=== PATIENT | female | born 1995 | race Caucasian/White ===

== ENCOUNTER 2018-11-11 04:45 | Emergency (ER) | payer BC, MEDICAID ==
[~2018-11-11] VITALS: Ht 160 cm; Wt 56.0 kg
[~2018-11-11 04:45] MED LIST: CLIN60LO TOP; NYST1000 PO
[2018-11-11 05:02] VITALS: BP 121/74
[2018-11-11] MEDS ORDERED: CLIN150C8 PO (05:15)
[2018-11-11] MEDS ORDERED: clindamycin 150mg capsule PO ONE (05:20)
[2018-11-11] MEDS ORDERED: fluconazole 100mg tablet PO ONE (05:25)
== END 2018-11-11 06:18 | disposition home or self-care (01) ==
LOC: ER 04:45
DX: S02.5XXA Fracture of tooth (traumatic), initial encounter for closed fracture (principal); F15.90 Other stimulant use, unspecified, uncomplicated; F11.90 Opioid use, unspecified, uncomplicated; Z86.14 Personal history of Methicillin resistant Staphylococcus aureus infection; Z60.2 Problems related to living alone; Z59.0 Homelessness; Z56.0 Unemployment, unspecified; Z79.899 Other long term (current) drug therapy; X58.XXXA Exposure to other specified factors, initial encounter; Y93.89 Activity, other specified; Y92.89 Other specified places as the place of occurrence of the external cause; Y99.8 Other external cause status
CPT/HCPCS: 99283

== ENCOUNTER 2019-05-13 09:37 | Emergency (ER) | payer BC, MEDICAID ==
[~2019-05-13] VITALS: Ht 160 cm; Wt 66.0 kg
[~2019-05-13 09:37] MED LIST changes: +CLIN150C8 PO
[2019-05-13] MEDS ORDERED: normal saline 1000ML IV soln IVB ONE (10:45)
[2019-05-13] MEDS ORDERED: ondansetron/PF 4mg/2ml inj IV ONE (10:45)
[2019-05-13 11:10] LABS: CLARITY,URINE SLIGHTLY CLOUDY (Clear); COLOR,URINE YELLOW (Yellow); GLUCOSE, URINE NEGATIVE (Neg); KETONES,URINE NEGATIVE (Neg); LEUKOCYTE ESTERASE ,URINE NEGATIVE (Neg); NITRITES, URINE NEGATIVE (Neg); OCCULT BLOOD,URINE TRACE-INTACT (Neg); PROTEIN,URINE NEGATIVE (Neg)
[2019-05-13 11:14] LABS: UA COLLECTION TYPE VOIDED
[2019-05-13 11:22] LABS: URINE AMPHETAMINE SCREEN POSITIVE (Neg); URINE BARBITUATE SCREEN NEGATIVE (Neg); URINE BENZODIAZEPINES SCREEN NEGATIVE (Neg); URINE CANNABINOID SCREEN NEGATIVE (Neg); URINE COCAINE SCREEN NEGATIVE (Neg); URINE METHADONE SCREEN NEGATIVE (Neg); URINE OPIATE SCREEN POSITIVE (Neg); URINE PHENCYCLIDINE SCREEN NEGATIVE (Neg)
[2019-05-13 11:26] LABS: HYALINE CASTS 0-3 /LPF (NEGATIVE); SQUAMOUS EPITHELIAL CELL,UR MODERATE /LPF (FEW)
[2019-05-13 11:26] LABS: BASOPHILS # (AUTO) 0.1 X10'3 (0-0.2); EOSINOPHILS # (AUTO) 0.1 X10'3 (0-0.9); EOSINOPHILS % (AUTO) 2.4 % (0-6); HEMATOCRIT 38.6 % (35.0-45.0); HEMOGLOBIN 13.1 g/dl (12.0-16.0); LYMPHOCYTES # (AUTO) 2.4 X10'3 (1.1-4.8); LYMPHOCYTES % (AUTO) 42.4 % (21-51); MEAN CORPUSCULAR HGB CONC 34.1 g/dL (33.0-36.5); MEAN CORPUSCULAR VOLUME 82.3 FL (78-98); MEAN PLATELET VOLUME 7.2 FL (7.4-10.4); MONOCYTES # (AUTO) 0.4 X10'3 (0-0.9); MONOCYTES % (AUTO) 8.1 % (2-12); NEUTROPHILS # (AUTO) 2.6 X10'3 (1.8-7.7); NEUTROPHILS % (AUTO) 46.1 % (42-75); PLATELET COUNT 341 X10'3 (140-440); RED BLOOD COUNT 4.69 X10'6 (4.20-5.60); RED CELL DISTRIBUTION WIDTH 13.4 % (11.5-14.5); WHITE BLOOD COUNT 5.6 X10'3 (4.5-11.0)
[2019-05-13 11:29] LABS: WBC,URINE 0-4 /HPF (0-4)
[2019-05-13 11:32] LABS: CAL OXALATE CRYSTALS FEW /HPF (NEGATIVE)
[2019-05-13 11:34] LABS: BACTERIA,URINE FEW /HPF (Neg)
[2019-05-13 11:35] LABS: MUCUS STRANDS FEW /LPF (Neg)
[2019-05-13 11:36] LABS: D-DIMER 0.21 MG/L FEU (0-0.50)
[2019-05-13 11:41] LABS: ALBUMIN 3.5 G/DL (3.4-5.0); ANION GAP 7 (8-16); BILIRUBIN,TOTAL 0.3 MG/DL (0.1-1.0); BLOOD UREA NITROGEN 10 MG/DL (7-18); BUN/CREATININE RATIO 14.5 (6.6-38.0); CALCIUM 8.6 MG/DL (8.5-10.1); CHLORIDE 104 MMOL/L (99-107); CREATININE 0.69 MG/DL (0.40-0.90); GLUCOSE 106 MG/DL (70-104); POTASSIUM 4.5 MMOL/L (3.5-5.1); SODIUM 137 MMOL/L (135-145); TOTAL CARBON DIOXIDE 26.5 MMOL/L (24-32); TOTAL PROTEIN 7.8 G/DL (6.4-8.2); eGFR > 90 ML/MIN
[2019-05-13 11:42] LABS: ALANINE AMINOTRANSFERASE 130 U/L (12-78); ALBUMIN/GLOBULIN RATIO 0.8 (1.1-1.5); ALKALINE PHOSPHATASE 77 IU/L (46-116); ASPARTATE AMINO TRANSFERASE 94 U/L (10-37); LIPASE 108 U/L (73-393)
[2019-05-13] MEDS ORDERED: IBUP-1984 PO (12:20)
[2019-05-13 12:34] VITALS: BP 134/90
[2019-05-13 12:56] LABS: URINE HCG NEGATIVE (NEG)
== END 2019-05-13 12:39 | disposition home or self-care (01) ==
LOC: ER 09:38
DX: R07.81 Pleurodynia (principal); F15.10 Other stimulant abuse, uncomplicated; Z59.0 Homelessness; Z56.0 Unemployment, unspecified; Z86.14 Personal history of Methicillin resistant Staphylococcus aureus infection
CPT/HCPCS: 36415; 71101; 80053; 80305; 81001; 81025; 83690; 85025; 85379; 99284